=== PATIENT | male | born 2000 | race Two or more races ===

== ENCOUNTER 2018-10-31 04:46 | Emergency (ER) | payer MEDICAID ==
[~2018-10-31] VITALS: Ht 188 cm; Wt 83.9 kg
[2018-10-31 06:52] VITALS: BP 128/76
== END 2018-10-31 07:49 | disposition home or self-care (01) ==
LOC: EDBD 04:46 → ER 04:49
DX: S39.012A Strain of muscle, fascia and tendon of lower back, initial encounter (principal); S61.432A Puncture wound without foreign body of left hand, initial encounter; V43.52XA Car driver injured in collision with other type car in traffic accident, initial encounter; Y93.89 Activity, other specified; Y99.8 Other external cause status; Y92.410 Unspecified street and highway as the place of occurrence of the external cause
CPT/HCPCS: 72128; 72131; 73130